=== PATIENT | female | born 1945 | race Caucasian/White ===

== ENCOUNTER 2023-07-27 19:37 | Inpatient (IN) | payer MEDICARE, MEDICAID ==
[~2023-07-27] VITALS: Ht 170.2 cm; Wt 63.6 kg
[2023-07-27] MEDS ORDERED: ACETAMINOPHEN 325 MG TABLET PO ONE (22:30)
[2023-07-27] MEDS ORDERED: PERTUSS(ACELL),DIPH,TET VAC/PF 0.5 ML SYRINGE IM. ONE (22:30)
[2023-07-27] MEDS ORDERED: BACITRACIN 0.9 GM PACKET OINTMENT TP ONE (22:30)
[2023-07-28] MEDS ORDERED: ACETAMINOPHEN 325 MG TABLET PO ONE (04:30)
[2023-07-28 07:44] LABS: BASOPHILS % (AUTO) 0.9 % (0.0-2.0); EOSINOPHILS % (AUTO) 1.8 % (1.0-6.0); HEMATOCRIT 40.4 % (36-46); HEMOGLOBIN 13.7 g/dL (12.0-16.0); LYMPHOCYTES # (AUTO) 2.2 K/uL (1.0-4.8); LYMPHOCYTES % (AUTO) 19.6 % (22.0-44.0); MEAN CORPUSCULAR HEMOGLOBIN 28.9 pg (26.0-34.0); MEAN CORPUSCULAR HGB CONC 33.8 G/dL (31.0-37.0); MEAN CORPUSCULAR VOLUME 86 fL (80-100); MONOCYTES # (AUTO) 1.1 K/uL (0.1-1.0); MONOCYTES % (AUTO) 9.7 % (2.0-9.0); NEUTROPHILS # (AUTO) 7.7 K/uL (1.8-7.7); PLATELET COUNT (AUTO) 333 K/uL (150-450); RED BLOOD CELL COUNT(AUTO) 4.72 MIL/uL (4.00-5.20); RED CELL DISTRIBUTION WIDTH 14.6 % (11.5-14.5); WHITE BLOOD COUNT (AUTO) 11.3 K/uL (4.5-11.0)
[2023-07-28 07:56] LABS: ANION GAP 8 mmol/L (8-16); CALCIUM, TOTAL 9.1 mg/dL (8.8-10.5); CARBON DIOXIDE 29 mmol/L (22-29); CHLORIDE 109 mmol/L (98-107); CREATININE 0.62 mg/dL (0.60-1.30); GLOMERULAR FILTR. RATE CALC > 60 mL/min (>60); GLUCOSE,RANDOM 112 mg/dL (70-110); POTASSIUM 3.7 mmol/L (3.5-5.1); SODIUM SERUM 146 mmol/L (136-145); UREA NITROGEN, BLOOD 18 mg/dL (7-18)
[2023-07-28 08:01] LABS: ALANINE AMINOTRANSFERASE 33 U/L (12-78); ALKALINE PHOSPHATASE 93 U/L (46-116); ASPARTATE AMINOTRANSFERASE 27 U/L (15-37); BILIRUBIN,TOTAL 0.6 mg/dL (0.1-1.0); LACTIC ACID 0.8 mmol/L (0.4-2.0); LIPASE 40 U/L (16-77); TOTAL PROTEIN, SERUM 7.1 g/dL (6.4-8.2)
[2023-07-28 08:03] LABS: TROPONIN I-HIGH SENSITIVITY 17 ng/L (<51)
[2023-07-28 11:26] LABS: APPEARANCE,URINE CLEAR (CLEAR); BILIRUBIN,URINE NEGATIVE (NEGATIVE); COLOR,URINE LIGHT YELLOW (YELLOW); GLUCOSE, URINE (UA) NEGATIVE (NEGATIVE); KETONES,URINE NEGATIVE (NEGATIVE); LEUKOCYTE ESTERASE ,URINE NEGATIVE (NEGATIVE); NITRATE,URINE NEGATIVE (NEGATIVE); OCCULT BLOOD,URINE SMALL (NEGATIVE); PROTEIN,URINE NEGATIVE (NEGATIVE); SPECIFIC GRAVITIY, URINE 1.019 (1.003-1.030); UROBILINOGEN,URINE <=1.0 mg/dL (<=1.0)
[2023-07-28 11:44] LABS: WBC,URINE None Seen /HPF (0-5)
[2023-07-28 11:45] LABS: BACTERIA,URINE None Seen /HPF (None Seen); SQUAMOUS EPITHELIAL CELL,UR Few /LPF (None Seen)
[2023-07-28 16:21] VITALS: BP 136/69; PULSE 67; RESP 18; TEMP 97.8
[2023-07-28] MEDS ORDERED: 0.9% SODIUM CHLORIDE 10 ML SYRINGE IVP PRN (20:30)
[2023-07-28] MEDS ORDERED: ONDANSETRON HCL 4 MG/2 ML VIAL IVP PRN (20:30)
[2023-07-28 20:41] VITALS: BP 139/77; PULSE 79; RESP 18; TEMP 97.9
[2023-07-28] MEDS: PANTOPRAZOLE SODIUM 40 MG/VIAL IVP SCH (22:34)
[2023-07-28] MEDS: HEPARIN SODIUM,PORCINE 5,000 UNITS/ML VIAL SQ SCH (22:34)
[2023-07-28] MEDS: DOCUSATE SODIUM 100 MG CAPSULE PO SCH (22:34)
[2023-07-29 04:58] VITALS: BP 168/75; PULSE 72; RESP 18; TEMP 97.9
[2023-07-29] MEDS: AmLODIPine BESYLATE 10 MG TABLET PO SCH (05:38)
[2023-07-29 06:18] VITALS: BP 138/71; PULSE 68
[2023-07-29 06:58] LABS: BASOPHILS % (AUTO) 0.6 % (0.0-2.0); EOSINOPHILS % (AUTO) 1.3 % (1.0-6.0); HEMATOCRIT 39.8 % (36-46); HEMOGLOBIN 13.6 g/dL (12.0-16.0); LYMPHOCYTES # (AUTO) 1.8 K/uL (1.0-4.8); LYMPHOCYTES % (AUTO) 11.7 % (22.0-44.0); MEAN CORPUSCULAR HGB CONC 34.1 G/dL (31.0-37.0); MEAN CORPUSCULAR VOLUME 85 fL (80-100); MONOCYTES # (AUTO) 1.3 K/uL (0.1-1.0); MONOCYTES % (AUTO) 8.7 % (2.0-9.0); NEUTROPHILS # (AUTO) 11.8 K/uL (1.8-7.7); NEUTROPHILS % (AUTO) 77.7 % (40.0-70.0); PLATELET COUNT (AUTO) 358 K/uL (150-450); RED BLOOD CELL COUNT(AUTO) 4.67 MIL/uL (4.00-5.20); RED CELL DISTRIBUTION WIDTH 14.8 % (11.5-14.5); WHITE BLOOD COUNT (AUTO) 15.1 K/uL (4.5-11.0)
[2023-07-29 07:26] LABS: ANION GAP 12 mmol/L (8-16); CARBON DIOXIDE 27 mmol/L (22-29); CHLORIDE 106 mmol/L (98-107); CREATININE 0.78 mg/dL (0.60-1.30); GLOMERULAR FILTR. RATE CALC > 60 mL/min (>60); GLUCOSE,RANDOM 100 mg/dL (70-110); POTASSIUM 3.7 mmol/L (3.5-5.1); SODIUM SERUM 145 mmol/L (136-145); UREA NITROGEN, BLOOD 16 mg/dL (7-18)
[2023-07-29] MEDS: DOCUSATE SODIUM 100 MG CAPSULE PO SCH ×2 (08:04→20:02)
[2023-07-29] MEDS: HEPARIN SODIUM,PORCINE 5,000 UNITS/ML VIAL SQ SCH ×2 (08:04→20:02)
[2023-07-29] MEDS: PANTOPRAZOLE SODIUM 40 MG/VIAL IVP SCH (08:04)
[2023-07-29] MEDS: OxyCODONE HCL/ACETAMINOPHEN 5-325 MG TABLET PO PRN ×2 (08:06→20:02)
[2023-07-29 09:00] VITALS: BP 151/75; PULSE 80; RESP 19; TEMP 98.9
[2023-07-29] MEDS ORDERED: AmLODIPine BESYLATE 10 MG TABLET PO SCH (09:00)
[2023-07-29 16:25] VITALS: BP 116/65; PULSE 69; RESP 16; TEMP 97.9
[2023-07-29 19:59] VITALS: BP 127/66; PULSE 67; RESP 18; TEMP 97.6
[2023-07-30] MEDS: OxyCODONE HCL/ACETAMINOPHEN 5-325 MG TABLET PO PRN (04:21)
[2023-07-30 04:37] VITALS: BP 136/65; PULSE 64; RESP 18; TEMP 97.8
[2023-07-30] MEDS: HEPARIN SODIUM,PORCINE 5,000 UNITS/ML VIAL SQ SCH ×2 (08:08→19:57)
[2023-07-30] MEDS: PANTOPRAZOLE SODIUM 40 MG/VIAL IVP SCH (08:08)
[2023-07-30] MEDS: DOCUSATE SODIUM 100 MG CAPSULE PO SCH ×2 (08:08→19:57)
[2023-07-30] MEDS: AmLODIPine BESYLATE 10 MG TABLET PO SCH (08:08)
[2023-07-30 09:09] VITALS: BP 140/61; PULSE 69; RESP 19; TEMP 98
[2023-07-30] MEDS ORDERED: BISACODYL 10 MG RECTAL RECTAL SUPPOSITORY PR PRN (18:45)
[2023-07-30 20:41] VITALS: BP 126/65; PULSE 71; RESP 18; TEMP 98
[2023-07-31 04:40] VITALS: BP 145/73; PULSE 70; RESP 18; TEMP 97.9
[2023-07-31 06:49] LABS: EOSINOPHILS % (AUTO) 1.9 % (1.0-6.0); HEMATOCRIT 39.5 % (36-46); HEMOGLOBIN 13.3 g/dL (12.0-16.0); LYMPHOCYTES # (AUTO) 2.3 K/uL (1.0-4.8); LYMPHOCYTES % (AUTO) 19.2 % (22.0-44.0); MEAN CORPUSCULAR HEMOGLOBIN 28.7 pg (26.0-34.0); MEAN CORPUSCULAR HGB CONC 33.6 G/dL (31.0-37.0); MEAN CORPUSCULAR VOLUME 85 fL (80-100); MONOCYTES # (AUTO) 0.9 K/uL (0.1-1.0); MONOCYTES % (AUTO) 7.9 % (2.0-9.0); NEUTROPHILS # (AUTO) 8.3 K/uL (1.8-7.7); PLATELET COUNT (AUTO) 318 K/uL (150-450); RED BLOOD CELL COUNT(AUTO) 4.63 MIL/uL (4.00-5.20); RED CELL DISTRIBUTION WIDTH 14.4 % (11.5-14.5); WHITE BLOOD COUNT (AUTO) 11.9 K/uL (4.5-11.0)
[2023-07-31 07:24] LABS: ANION GAP 11 mmol/L (8-16); CALCIUM, TOTAL 8.9 mg/dL (8.8-10.5); CARBON DIOXIDE 25 mmol/L (22-29); CHLORIDE 105 mmol/L (98-107); CREATININE 0.65 mg/dL (0.60-1.30); GLOMERULAR FILTR. RATE CALC > 60 mL/min (>60); GLUCOSE,RANDOM 105 mg/dL (70-110); POTASSIUM 3.6 mmol/L (3.5-5.1); SODIUM SERUM 141 mmol/L (136-145); UREA NITROGEN, BLOOD 21 mg/dL (7-18)
[2023-07-31] MEDS: HEPARIN SODIUM,PORCINE 5,000 UNITS/ML VIAL SQ SCH ×2 (08:23→20:07)
[2023-07-31] MEDS: DOCUSATE SODIUM 100 MG CAPSULE PO SCH ×2 (08:23→20:07)
[2023-07-31] MEDS: AmLODIPine BESYLATE 10 MG TABLET PO SCH (08:23)
[2023-07-31] MEDS: PANTOPRAZOLE SODIUM 40 MG/VIAL IVP SCH (08:50)
[2023-07-31 10:15] VITALS: BP 137/67; PULSE 75; RESP 18; TEMP 97.8
[2023-07-31] MEDS: OxyCODONE HCL/ACETAMINOPHEN 5-325 MG TABLET PO PRN (10:24)
[2023-07-31 17:38] VITALS: BP 117/57; PULSE 67; RESP 18; TEMP 97.4
[2023-07-31 20:30] VITALS: BP 108/59; PULSE 72; RESP 18; TEMP 97.3
[2023-08-01 02:18] VITALS: BP 125/67; PULSE 72; RESP 18; TEMP 97.9
[2023-08-01 08:29] VITALS: BP 140/73; PULSE 66; RESP 19; TEMP 97.8
[2023-08-01] MEDS: DOCUSATE SODIUM 100 MG CAPSULE PO SCH ×2 (09:37→19:47)
[2023-08-01] MEDS: AmLODIPine BESYLATE 10 MG TABLET PO SCH (09:37)
[2023-08-01] MEDS: PANTOPRAZOLE SODIUM 40 MG/VIAL IVP SCH (09:37)
[2023-08-01] MEDS: HEPARIN SODIUM,PORCINE 5,000 UNITS/ML VIAL SQ SCH ×2 (09:37→19:46)
[2023-08-01 16:38] VITALS: BP 126/69; PULSE 63; RESP 19; TEMP 97.8
[2023-08-01 19:35] VITALS: BP 119/59; PULSE 74; RESP 18; TEMP 97.9
[2023-08-01] MEDS: OxyCODONE HCL/ACETAMINOPHEN 5-325 MG TABLET PO PRN (19:48)
[2023-08-02 05:34] VITALS: BP 116/60; PULSE 67; RESP 18; TEMP 97.7
[2023-08-02 07:17] LABS: BASOPHILS % (AUTO) 1.3 % (0.0-2.0); EOSINOPHILS % (AUTO) 2.9 % (1.0-6.0); HEMATOCRIT 39.2 % (36-46); HEMOGLOBIN 13.2 g/dL (12.0-16.0); LYMPHOCYTES # (AUTO) 2.6 K/uL (1.0-4.8); LYMPHOCYTES % (AUTO) 26.9 % (22.0-44.0); MEAN CORPUSCULAR HGB CONC 33.8 G/dL (31.0-37.0); MEAN CORPUSCULAR VOLUME 86 fL (80-100); MONOCYTES # (AUTO) 0.8 K/uL (0.1-1.0); MONOCYTES % (AUTO) 7.7 % (2.0-9.0); NEUTROPHILS % (AUTO) 61.2 % (40.0-70.0); PLATELET COUNT (AUTO) 272 K/uL (150-450); RED BLOOD CELL COUNT(AUTO) 4.56 MIL/uL (4.00-5.20); RED CELL DISTRIBUTION WIDTH 14.6 % (11.5-14.5); WHITE BLOOD COUNT (AUTO) 9.8 K/uL (4.5-11.0)
[2023-08-02 07:31] LABS: ALANINE AMINOTRANSFERASE 26 U/L (12-78); ALBUMIN 3.3 g/dL (3.4-5.0); ALKALINE PHOSPHATASE 72 U/L (46-116); ANION GAP 8 mmol/L (8-16); ASPARTATE AMINOTRANSFERASE 24 U/L (15-37); BILIRUBIN,TOTAL 0.3 mg/dL (0.1-1.0); CALCIUM, TOTAL 8.9 mg/dL (8.8-10.5); CARBON DIOXIDE 29 mmol/L (22-29); CHLORIDE 106 mmol/L (98-107); CREATININE 0.76 mg/dL (0.60-1.30); GLOMERULAR FILTR. RATE CALC > 60 mL/min (>60); GLUCOSE,RANDOM 94 mg/dL (70-110); POTASSIUM 4.3 mmol/L (3.5-5.1); SODIUM SERUM 143 mmol/L (136-145); TOTAL PROTEIN, SERUM 6.3 g/dL (6.4-8.2); UREA NITROGEN, BLOOD 25 mg/dL (7-18)
[2023-08-02 08:45] VITALS: BP 118/62; PULSE 68; RESP 19; TEMP 97.8
[2023-08-02] MEDS: PANTOPRAZOLE SODIUM 40 MG/VIAL IVP SCH (10:05)
[2023-08-02] MEDS: HEPARIN SODIUM,PORCINE 5,000 UNITS/ML VIAL SQ SCH ×2 (10:06→21:13)
[2023-08-02] MEDS: AmLODIPine BESYLATE 10 MG TABLET PO SCH (10:06)
[2023-08-02] MEDS: DOCUSATE SODIUM 100 MG CAPSULE PO SCH ×2 (10:06→21:12)
[2023-08-02 16:37] VITALS: BP 112/64; PULSE 66; RESP 19; TEMP 97.9
[2023-08-02 19:55] VITALS: BP 115/58; PULSE 73; RESP 18; TEMP 97.5
[2023-08-03 04:37] VITALS: BP 139/56; PULSE 69; RESP 18; TEMP 97.7
[2023-08-03 07:32] LABS: EOSINOPHILS % (AUTO) 2.8 % (1.0-6.0); HEMATOCRIT 39.7 % (36-46); HEMOGLOBIN 13.4 g/dL (12.0-16.0); LYMPHOCYTES # (AUTO) 3.1 K/uL (1.0-4.8); LYMPHOCYTES % (AUTO) 27.7 % (22.0-44.0); MEAN CORPUSCULAR HEMOGLOBIN 28.7 pg (26.0-34.0); MEAN CORPUSCULAR HGB CONC 33.8 G/dL (31.0-37.0); MEAN CORPUSCULAR VOLUME 85 fL (80-100); MONOCYTES # (AUTO) 0.9 K/uL (0.1-1.0); MONOCYTES % (AUTO) 8.4 % (2.0-9.0); NEUTROPHILS # (AUTO) 6.7 K/uL (1.8-7.7); NEUTROPHILS % (AUTO) 60.1 % (40.0-70.0); RED BLOOD CELL COUNT(AUTO) 4.68 MIL/uL (4.00-5.20); RED CELL DISTRIBUTION WIDTH 14.5 % (11.5-14.5); WHITE BLOOD COUNT (AUTO) 11.2 K/uL (4.5-11.0)
[2023-08-03] MEDS: PANTOPRAZOLE SODIUM 40 MG/VIAL IVP SCH (08:01)
[2023-08-03] MEDS: DOCUSATE SODIUM 100 MG CAPSULE PO SCH (08:02)
[2023-08-03] MEDS: HEPARIN SODIUM,PORCINE 5,000 UNITS/ML VIAL SQ SCH (08:02)
[2023-08-03 08:08] LABS: ALANINE AMINOTRANSFERASE 29 U/L (12-78); ALBUMIN 3.5 g/dL (3.4-5.0); ALKALINE PHOSPHATASE 80 U/L (46-116); ANION GAP 14 mmol/L (8-16); ASPARTATE AMINOTRANSFERASE 29 U/L (15-37); BILIRUBIN,TOTAL 0.3 mg/dL (0.1-1.0); CALCIUM, TOTAL 9.1 mg/dL (8.8-10.5); CARBON DIOXIDE 25 mmol/L (22-29); CHLORIDE 106 mmol/L (98-107); CREATININE 0.69 mg/dL (0.60-1.30); GLOMERULAR FILTR. RATE CALC > 60 mL/min (>60); GLUCOSE,RANDOM 94 mg/dL (70-110); POTASSIUM 4.2 mmol/L (3.5-5.1); SODIUM SERUM 145 mmol/L (136-145); TOTAL PROTEIN, SERUM 6.3 g/dL (6.4-8.2); UREA NITROGEN, BLOOD 26 mg/dL (7-18)
[2023-08-03] MEDS: AmLODIPine BESYLATE 10 MG TABLET PO SCH (08:10)
[2023-08-03 08:38] LABS: PLATELET COUNT (AUTO) 211 K/uL (150-450)
[2023-08-03 08:47] VITALS: BP 139/64; PULSE 68; RESP 18; TEMP 98.4
[2023-08-03] MEDS ORDERED: AMLO-258 PO (14:10)
== END 2023-08-03 14:21 | disposition home health service (06) | DRG 605 ==
LOC: EMS 19:37 → AHU 07-28 08:28 → 6S 07-28 10:19
PROVIDERS: ADMIT Internal Medicine; ATTEND Internal Medicine
DX: S50.01XA Contusion of right elbow, initial encounter (principal); R62.7 Adult failure to thrive; R53.1 Weakness; W01.0XXA Fall on same level from slipping, tripping and stumbling without subsequent striking against object, initial encounter; F03.90 Unspecified dementia, unspecified severity, without behavioral disturbance, psychotic disturbance, mood disturbance, and anxiety; I10 Essential (primary) hypertension; Z90.710 Acquired absence of both cervix and uterus; Z91.81 History of falling; Y93.89 Activity, other specified; Y92.091 Bathroom in other non-institutional residence as the place of occurrence of the external cause; Y99.8 Other external cause status; Z68.22 Body mass index [BMI] 22.0-22.9, adult
CPT/HCPCS: 70450; 72125; 80048; 80053; 81001; 83605; 83690; 84484; 85025; 90715; 97162; 97530; 99285; C9113; J1644

== ENCOUNTER 2025-04-21 16:52 | Inpatient (IN) | payer MEDICARE, OTHER ==
[~2025-04-21] VITALS: Ht 160 cm; Wt 60.3 kg
[~2025-04-21 16:52] MED LIST: AMLO-258 PO
[2025-04-21 18:17] LABS: PLATELET COUNT (AUTO) 323 K/uL (150-450); RED BLOOD CELL COUNT(AUTO) 5.06 MIL/uL (4.00-5.20); RED CELL DISTRIBUTION WIDTH 14.5 % (11.5-14.5); WHITE BLOOD COUNT (AUTO) 10.3 K/uL (4.5-11.0)
[2025-04-21 18:34] LABS: CALCIUM, TOTAL 8.7 mg/dL (8.8-10.5); CREATININE 0.52 mg/dL (0.60-1.30); GLOMERULAR FILTR. RATE CALC > 60 mL/min (>60); GLUCOSE,RANDOM 88 mg/dL (70-110); SODIUM SERUM 141 mmol/L (136-145); UREA NITROGEN, BLOOD 20 mg/dL (7-18)
[2025-04-21 18:35] LABS: ASPARTATE AMINOTRANSFERASE 19 U/L (15-37); TOTAL PROTEIN, SERUM 6.5 g/dL (6.4-8.2)
[2025-04-21 18:45] LABS: ALCOHOL, BLOOD (SERUM) < 3 mg/dL (0-10)
[2025-04-21] MEDS: ACETAMINOPHEN 325 MG TABLET PO ONE (19:55)
[2025-04-21 20:46] LABS: COVID AG,FIA SOURCE NASAL SWAB
[2025-04-21 21:18] LABS: SARS-COV2 (COVID) ANTIGEN,FIA Negative (Negative)
[2025-04-22] MEDS: ZOLPIDEM TARTRATE 10 MG TABLET PO PRN (01:49)
[2025-04-22 12:35] LABS: APPEARANCE,URINE HAZY (CLEAR); GLUCOSE, URINE (UA) NEGATIVE (NEGATIVE); LEUKOCYTE ESTERASE ,URINE LARGE (NEGATIVE); NITRATE,URINE POSITIVE (NEGATIVE); OCCULT BLOOD,URINE SMALL (NEGATIVE); PH,URINE DRUG SCREEN 6.5 (5.0-8.0); SPECIFIC GRAVITIY, URINE 1.020 (1.003-1.030)
[2025-04-22 12:41] LABS: ALCOHOL, URINE DRUG SCREEN NEGATIVE (NEGATIVE); AMPHET/METH SCREEN,URINE NEGATIVE (NEGATIVE); BARBITURATE SCREEN, URINE NEGATIVE (NEGATIVE); CANNABINOID SCREEN,URINE NEGATIVE (NEGATIVE); COCAINE SCREEN,URINE NEGATIVE (NEGATIVE); METHADONE SCREEN, URINE NEGATIVE (NEGATIVE)
[2025-04-22 12:50] LABS: SQUAMOUS EPITHELIAL CELL,UR Few /LPF (None Seen)
[2025-04-22 13:37] LABS: PLATELET COUNT (AUTO) 294 K/uL (150-450); RED BLOOD CELL COUNT(AUTO) 5.00 MIL/uL (4.00-5.20); RED CELL DISTRIBUTION WIDTH 14.3 % (11.5-14.5); WHITE BLOOD COUNT (AUTO) 8.5 K/uL (4.5-11.0)
[2025-04-22 13:46] LABS: CALCIUM, TOTAL 8.4 mg/dL (8.8-10.5); CREATININE 0.56 mg/dL (0.60-1.30); GLOMERULAR FILTR. RATE CALC > 60 mL/min (>60); GLUCOSE,RANDOM 113 mg/dL (70-110); SODIUM SERUM 142 mmol/L (136-145); UREA NITROGEN, BLOOD 16 mg/dL (7-18)
[2025-04-22] MEDS: CefTRIAXone 1 GM/DEXTROSE 50 ML IV ONE (13:54)
[2025-04-22] MEDS ORDERED: ACETAMINOPHEN 325 MG TABLET PO PRN (16:00)
[2025-04-22] MEDS ORDERED: ONDANSETRON HCL 4 MG/2 ML VIAL IVP PRN (16:00)
[2025-04-22] MEDS: HEPARIN SODIUM,PORCINE 5,000 UNITS/ML VIAL SQ SCH (16:00)
[2025-04-22] MEDS: DOCUSATE SODIUM 100 MG CAPSULE PO SCH (20:12)
[2025-04-22 22:35] VITALS: BP 129/74; PULSE 65; RESP 18; TEMP 97.9; O2SAT 97
[2025-04-23 04:00] VITALS: BP 126/73; PULSE 66; RESP 16; TEMP 97.7; O2SAT 98
[2025-04-23 06:23] LABS: PLATELET COUNT (AUTO) 293 K/uL (150-450); RED BLOOD CELL COUNT(AUTO) 5.12 MIL/uL (4.00-5.20); RED CELL DISTRIBUTION WIDTH 14.3 % (11.5-14.5); WHITE BLOOD COUNT (AUTO) 9.7 K/uL (4.5-11.0)
[2025-04-23 06:31] LABS: CALCIUM, TOTAL 9.0 mg/dL (8.8-10.5); CREATININE 0.50 mg/dL (0.60-1.30); GLOMERULAR FILTR. RATE CALC > 60 mL/min (>60); GLUCOSE,RANDOM 75 mg/dL (70-110); SODIUM SERUM 143 mmol/L (136-145); UREA NITROGEN, BLOOD 15 mg/dL (7-18)
[2025-04-23 08:28] VITALS: BP 125/73; PULSE 66; RESP 18; TEMP 97.5; O2SAT 100
[2025-04-23] MEDS ORDERED: SODIUM CHLORIDE 0.9% 500 ML IV ONE (12:37)
[2025-04-23] MEDS: CefTRIAXone 1 GM/DEXTROSE 50 ML IV SCH (13:31)
[2025-04-23 15:28] VITALS: BP 119/76; PULSE 75; RESP 20; TEMP 97.9; O2SAT 95
[2025-04-23 20:00] VITALS: BP 113/60; PULSE 81; RESP 18; TEMP 97.7; O2SAT 96
[2025-04-24 04:00] VITALS: BP 117/74; PULSE 64; RESP 18; TEMP 97.5; O2SAT 95
[2025-04-24 07:56] VITALS: BP 113/68; PULSE 68; RESP 18; TEMP 97.5; O2SAT 95
[2025-04-24 15:30] VITALS: BP 121/71; PULSE 73; RESP 18; TEMP 97.7; O2SAT 97
[2025-04-24 19:49] VITALS: BP 130/73; PULSE 76; RESP 18; TEMP 97.5; O2SAT 96
[2025-04-25 05:15] VITALS: BP 147/78; PULSE 77; RESP 18; TEMP 97.6; O2SAT 96
[2025-04-25 08:06] VITALS: BP 143/76; PULSE 71; RESP 18; TEMP 97.7; O2SAT 96
[2025-04-25] MEDS ORDERED: CEFT1VIA65 IM (12:50)
[2025-04-25] MEDS ORDERED: [UNRECOGNIZED DRUG - CODE] SQ (12:53)
[2025-04-25] MEDS ORDERED: ACET-2247 PO (13:02)
[2025-04-25 15:41] VITALS: BP 159/74; PULSE 73; RESP 18; TEMP 97.9; O2SAT 95
[2025-04-25 19:38] VITALS: BP 123/63; PULSE 77; RESP 18; TEMP 97.9; O2SAT 94
== END 2025-04-25 22:07 | DRG 689 ==
LOC: EMS 16:55 → EDBEDREQDT 04-22 13:56 → EDBEDREQSVC 04-22 13:56 → EDBEDREQTM 04-22 13:56 → EDBEDREQ 04-22 13:56 → EDH 04-22 18:05 → 6S 04-22 22:24
PROVIDERS: ADMIT Internal Medicine; ATTEND Internal Medicine
DX: N39.0 Urinary tract infection, site not specified (principal); G93.41 Metabolic encephalopathy; E44.0 Moderate protein-calorie malnutrition; I10 Essential (primary) hypertension; F43.10 Post-traumatic stress disorder, unspecified; F41.9 Anxiety disorder, unspecified; R41.89 Other symptoms and signs involving cognitive functions and awareness; K21.9 Gastro-esophageal reflux disease without esophagitis; Z90.710 Acquired absence of both cervix and uterus; Z73.6 Limitation of activities due to disability; Z68.23 Body mass index [BMI] 23.0-23.9, adult
CPT/HCPCS: 73503; 80048; 80076; 80307; 81001; 83735; 85025; 87077; 87081; 87086; 87186; 99285; G0480; J0696; J1644; J7040